=== PATIENT | male | born 1940 | race Two or more races ===

== ENCOUNTER 2019-04-29 05:32 | Inpatient (IN) | payer MEDICARE, OTHER ==
[~2019-04-29] VITALS: Ht 172.7 cm; Wt 59.0 kg
[2019-04-29 08:00] VITALS: BP 122/79
[2019-04-29 08:30] VITALS: BP 122/79
[2019-04-29] MEDS ORDERED: IV NS 0.9% 1,000 ML IV SCH (09:00)
[2019-04-29] MEDS ORDERED: MAG HYDROX/AL HYDROX/SIMETH 30 ML UDC PO PRN (09:00)
[2019-04-29] MEDS ORDERED: Z GUARD REMEDY 2 OZ OINT TP PRN (09:00)
[2019-04-29] MEDS ORDERED: ZOLPIDEM TARTRATE 5 MG TABLET PO PRN (09:00)
--- NOTE | 2019-04-29 09:15 | NUR ---
MS/RN - Admission Received a direct admit form [facility]. Patient is A/O x 4, denies abdominal pain, no c/o n/v, stable on room air, here for SBO under the care of Dr. Castro. Saline lock on the RAC is patent, intact, with no signs of infiltration. Patient came in with Aguila catheter for accurate intake and output monitoring, aguila draining clear yellow urine output. NGT on the right naris in place connected to LIS, noted with brownish/greenish output. Patient oriented to room and use of call light. All belongings accounted. Fall and aspiration precautions initiated. Admission orders noted and carried out. Will continue to monitor closely.
[2019-04-29] MEDS ORDERED: AMYL1CAP54 PO (09:42)
[2019-04-29] MEDS ORDERED: PRAV20TA4 PO (09:42)
[2019-04-29] MEDS ORDERED: LORA0.5T PO (09:42)
[2019-04-29] MEDS ORDERED: ZOLP12.542 PO (09:42)
[2019-04-29] MEDS ORDERED: HYDR-4385 PO (09:42)
[2019-04-29] MEDS: MORPHINE SULFATE INJ 2 MG/ML DISP.SYRIN IV PRN ×2 (10:25→15:30)
--- NOTE | 2019-04-29 10:30 | NUR ---
MS/RN - S/b Dr. Castro Seen and examined by Dr. Castro with orders.
[2019-04-29] MEDS ORDERED: MORPHINE SULFATE INJ 2 MG/ML DISP.SYRIN IVP PRN (13:00)
[2019-04-29 16:00] VITALS: BP 132/84
[2019-04-29] MEDS: ONDANSETRON HCL/PF 4 MG/2 ML VIAL IVP PRN (17:03)
--- NOTE | 2019-04-29 17:36 | NUR ---
MS/RN - End of shift summary Patient with low grade temperature, cooling measures rendered, c/o nausea, Zofran given with relief, still on strict NPO. Per patient, Morphine Sulfate IVP is not helping his pain and requested to change his pain medication. Dr. Castro made aware with order to give Dilaudid 1 mg IVP every 4 hours PRN for severe pain. NGT to right nostril in place, 300 ml of coffee-ground output noted this shift. All needs attended. Fall and aspiration precautions maintained. Will continue with current medical management.
[2019-04-29] MEDS: HYDROMORPHONE 1 MG/1 ML DISP.SYRIN IV PRN ×2 (18:20→21:52)
--- NOTE | 2019-04-29 19:10 | NUR ---
MS/RN PM OPENING NOTE. PATIENT SEEN RESTING IN BED. BEDSIDE REPORT RECIEVED FROM ALBERTO BAXTER. PATIENT HAS NGT TO LIS AND HAD 350 OUT DURING THE DAY. NO S/S OF COMPLICATIONS TO RIGHT NARE. NPO. REVIEWED PAIN MANAEMENT PLAN WITH PATIENT QUESTIONS CONCERNS ADDRESSED. Fall and aspiration precautions maintained. Will continue TO MONITOR. VERBALIZED UNDERSTANDING TO CALL FOR ASSISTANCE NEEDED.
[2019-04-29 20:00] VITALS: BP 138/82
[2019-04-29] MEDS ORDERED: HYDROMORPHONE 1 MG/1 ML DISP.SYRIN IV PRN (22:30)
[2019-04-29] MEDS ORDERED: HYDROMORPHONE 1 MG/1 ML DISP.SYRIN IV ONE (22:30)
[2019-04-29] MEDS: IV NS 0.9% 1,000 ML IV PRN (22:45)
--- NOTE | 2019-04-29 22:45 | NUR ---
dilaudid pain medication change. diomedes kiln feeder called earlier and informed of patient c/o pain 8/10 after being given his dose of dilaudid. order changed to dilaudid 2mg q4hrs prn and one time dose given of dilaudid 1mg. patient now reports that he has better relief of abd pain. arousable to speech. rr of 16. reports pain as 4/10 at this time will cont to monitor.
[2019-04-30] MEDS: ZOLPIDEM TARTRATE 10 MG TABLET PO PRN ×2 (00:56→21:25)
--- NOTE | 2019-04-30 00:56 | NUR ---
patient requested sleeping pill/ ngt turned off for one hour. patient requesting sleeping pill. ambien 10 mg given orally with a sip of water as ordered. ngt lis to be off for the next hour then restarted.
[2019-04-30] MEDS: HYDROMORPHONE INJ 2 MG/ML DISP.SYRIN IV PRN ×5 (02:34→23:30)
[2019-04-30 05:10] VITALS: BP 148/94
--- NOTE | 2019-04-30 06:20 | NUR ---
MS/RN PM CLOSING NOTE. PATIENT SEEN RESTING IN BED. NGT STILL OUTPUTTING BLACK GASTRIC JUICE TO LIS VIA NGT TO RIGHT NARE. PATIENT REPORTING THAT HE BELIEVES THE DILAUDID IS MAKING HIM ANXIOUS AND IS REQUESTING TO HAVE IT CHANGED BACK TO MORPHINE. DR. DEBBIE PHIPPS WILL AWAIGHT CALL BACK. PATIENT REMAINS NPO. Fall and aspiration precautions maintained. Will continue TO MONITOR. VERBALIZED UNDERSTANDING TO CALL FOR ASSISTANCE NEEDED.
[2019-04-30 06:26] LABS: BASOPHILS # (AUTO) 0.1 /CMM (0.0-0.2); BASOPHILS % (AUTO) 0.6 % (0.0-2.0); EOSINOPHILS % (AUTO) 0.2 % (0.0-6.0); HEMATOCRIT 49 % (39-51); HEMOGLOBIN 16.6 g/dL (13.5-17.5); LYMPHOCYTES # (AUTO) 2.3 /CMM (0.8-4.8); LYMPHOCYTES % (AUTO) 12.1 % (20.0-44.0); MEAN CORPUSCULAR HGB CONC 34 g/dl (31.0-36.0); MEAN CORPUSCULAR VOLUME 95 fL (80-96); MONOCYTES # (AUTO) 1.2 /CMM (0.1-1.30); MONOCYTES % (AUTO) 6.2 % (2.0-12.0); NEUTROPHILS # (AUTO) 15.6 /CMM (1.8-8.9); NEUTROPHILS % (AUTO) 80.9 % (43.0-81.0); PLATELET COUNT (AUTO) 284 /CMM (150-450); RED BLOOD CELL COUNT(AUTO) 5.17 MIL/uL (4.5-6.0); WHITE BLOOD COUNT (AUTO) 19.3 K/uL (4.3-11.0)
[2019-04-30 06:48] LABS: CALCIUM, SERUM 8.9 mg/dL (8.5-10.1); CREATININE 0.8 mg/dL (0.6-1.3); PHOSPHORUS 2.2 mg/dL (2.5-4.9); POTASSIUM 4.2 mmol/L (3.5-5.1)
--- NOTE | 2019-04-30 06:50 | NUR ---
PAGE TO AGUS LEWIS MAIN GALLEY SCULLION NOT RETURNED WILL ENDORSE PAIN MANAGEMENT CHANGE OF REORDERING MORPHINE TO ONCOMING NRUSE.
[2019-04-30 08:00] VITALS: BP 146/79
--- NOTE | 2019-04-30 08:00 | NUR ---
PATIENT REQUESTED TO CHANGE PAIN MEDICATION HYDROMORPHONE TO MORPHINE. WILL INFORM DR. DONG
--- NOTE | 2019-04-30 08:30 | NUR ---
PER DR. LETITIA CISNEROS TO CHANGE HYDROMORPHONE IVP TO MORPHINE IVP.
--- NOTE | 2019-04-30 08:40 | NUR ---
PATIENT SEEN BY . PER DR. DONG START ON CLEAR LIQUID AND ADVANCE TOLERATED TO FULL LIQUID. IF PATIENT WILL TOLERATED DIET NG TUBE CAN BE REMOVED. PATIENT WILLING START QLEAR LIQUID FOR LUNCH.
[2019-04-30] MEDS: MORPHINE SULFATE INJ 2 MG/ML DISP.SYRIN IV PRN ×2 (10:38→13:45)
--- NOTE | 2019-04-30 12:30 | NUR ---
PATIENT UNABLE TO EAT, COMPLAIN OF PAIN AND NAUSEA
[2019-04-30] MEDS: HYDROCODONE/APAP 5/325MG 1 EACH TABLET PO PRN (12:48)
[2019-04-30] MEDS ORDERED: K PHOS NEUTRAL 250 MG TABLET PO ONE (13:30)
[2019-04-30] MEDS: ONDANSETRON HCL/PF 4 MG/2 ML VIAL IVP PRN (15:07)
[2019-04-30] MEDS: IV NS 0.9% 1,000 ML IV PRN (15:07)
--- NOTE | 2019-04-30 16:30 | NUR ---
PER PATIENT REQUEST CALLED TO TO CHANGE MORPHINE BACK TO HYDROMORPHONE. PATIENT COMPLAINS THAT MORPHINE DOES NOT WORK WELL.
[2019-04-30 16:31] VITALS: BP 120/71
--- NOTE | 2019-04-30 18:42 | NUR ---
PATIENT RESTING IN BED. PAIN TOLERATED WITH HYDROMORPHONE IV. PATIENT TRYING TO START ON CLEAR LIQUID DIET. ALL NEEDS ATTENDED. IV FLUID RUNNING ORDERED. NGT LTS , OUTPUT 200ML. F/C OUTPUT 1200. SAFETY PRECAUTION IN PLACE , CALL LIGHT WITHIN REACH. WILL ENDORSE TO NEXT SHIFT FOR TAYLOR.
--- NOTE | 2019-04-30 19:31 | NUR ---
MS/RN OPENING NOTES PATIENT IS AWAKE, ALERT X3, ABLE TO VERBALIZE NEEDS, REPORTED PAIN CONSTSNT AND REQUESTING TO GIVE DUE PAIN MEDICATION , BLOOD PRESSURE CHECKED AT 119/78, PULSE RATE ELEVATED AT 130. ASYMPTOMATIC, BUT REPORTED ANXIOUS PATIENT HAVE CHRONIC PAIN, NO NAUSEA, WILL MONITOR, WATCHING BASEBALL GAME AND VERBALIZING NEEDS.WILL GIVE PAIN MEDICATIED DILAUDID2 MG IV. BED LOCKED, CALL LIGHTS WITHIN REACH, WILL MONITOR.
[2019-04-30] MEDS: METOCLOPRAMIDE HCL 10 MG/2 ML VIAL IV SCH (19:39)
[2019-04-30 20:00] VITALS: BP 119/75
--- NOTE | 2019-04-30 20:10 | NUR ---
ms/rn notes patient ngt in placed on right nares with drain colored dark brown.
--- NOTE | 2019-04-30 20:21 | NUR ---
MS/RN NOTES PATIENT WITH NGT FOR BOWEL DISTENTION, AND WITH CROWDER CATETHER DRAINING YELLOW URINE, BEING MONITORED FOR PAIN .
--- NOTE | 2019-04-30 23:50 | NUR ---
ms/rn notes PATIENT REPORTED SEVERE PAIN , PROVIDED FLUIDS, KEEP COMFORTABLE, REPOSITIONED FOR COMFORT, ALERT, ORIENTED X3. REQUIRE ASSISTANCE, PAIN MEDICATION REQUESTED AND INSTRUCTED ON SAFETY MEASURES.
[2019-05-01] MEDS: METOCLOPRAMIDE HCL 10 MG/2 ML VIAL IV SCH ×4 (00:11→19:58)
[2019-05-01] MEDS: HYDROMORPHONE INJ 2 MG/ML DISP.SYRIN IV PRN ×5 (02:38→20:00)
--- NOTE | 2019-05-01 02:38 | NUR ---
MS/RN NOTES PATIENT WOKE UP FROM SLEEP, ALERT, ORIENTED REPORTED SEVERE PAIN, REAPIRATIONS EVEN AND UNLABORED, SKIN WARM TO TOUCH OXYGENATION AT 92% RA, PULSE AT 130, B/P 128/78. WILL MONITOR, KEPT COMFORTABLE. ,
[2019-05-01] MEDS: IV NS 0.9% 1,000 ML IV PRN ×2 (04:31→19:08)
--- NOTE | 2019-05-01 04:35 | NUR ---
MS/RN NOTES PATIENT KEPT COMFORTABLE AND REQUIRE OXYGEN AT 2L TO KEEP OXYGENATION LEVEL ABOVE 92%. WILL MONITOR.
[2019-05-01 06:00] VITALS: BP 126/78
--- NOTE | 2019-05-01 06:50 | NUR ---
MS/RN CLOSING NOTES PATIENT ALERT, ORIENTED, ABLE TO VERBALIZE NEEDS, ON PAIN MANAGEMENT MONITORING LAST PAIN MEDICATION GIVEN AT 0623. PATIENT ON OXYGEN VIA 2L SATURATION OF 96%, ABLE TO SLEEP FEW HOURS, SKIN INTACT AND DRY, ON NGT ON RIGHT NARES WITH INTERMITENT SUCTIONING, CROWDER CATHETER DRAINING YELLOW COLOR URINE. TO MONITOR AND ENDORSE TO AM RN FOR TAYLOR.
--- NOTE | 2019-05-01 07:00 | NUR ---
MS RN OPENING NOTES RECEIVED PATIENT IN BED ALERT AND AWAKE ORIENTED X4. DENIES ANY C/O ABD PAIN, N/V, HEADACHE NOR ANY OTHER DISCOMFORT. NOTED PATIENT WITH HR OF 120 WITH BP OF 119/61 . PER PATIENT, HE'S A BIT ANXIOUS BECAUSE HIS IS STILL OUT OF TOWN IN [place] AND MISSES HER, WANTING HER TO COME HOME. PATIENT DENIES ANY OTHER C/O PAIN NOR DISCOMFORT. ON O2 # 3 L/MIN VIA NC WITHOUT SOB OBSERVED WITH HOB ELEVATED. ON INTERMITTENT SUCTION WITH NGT TO RIGHT NARES LOLA WELL. CROWDER CATHETER INTACT AND PATENT DRAINING URINE VIA BEDSIDE. RAC # 20 INTACT AND PATENT INFUSING NS @ 75ML/HR LOLA WELL. IN NO APPARENT DISTRESS.
[2019-05-01 07:20] LABS: BASOPHILS # (AUTO) 0.1 /CMM (0.0-0.2); BASOPHILS % (AUTO) 0.5 % (0.0-2.0); EOSINOPHILS % (AUTO) 0.4 % (0.0-6.0); HEMATOCRIT 43 % (39-51); HEMOGLOBIN 14.7 g/dL (13.5-17.5); LYMPHOCYTES # (AUTO) 1.2 /CMM (0.8-4.8); LYMPHOCYTES % (AUTO) 6.7 % (20.0-44.0); MEAN CORPUSCULAR HGB CONC 34 g/dl (31.0-36.0); MEAN CORPUSCULAR VOLUME 95 fL (80-96); MONOCYTES # (AUTO) 1.6 /CMM (0.1-1.30); MONOCYTES % (AUTO) 9.4 % (2.0-12.0); NEUTROPHILS # (AUTO) 14.3 /CMM (1.8-8.9); PLATELET COUNT (AUTO) 268 /CMM (150-450); RED BLOOD CELL COUNT(AUTO) 4.58 MIL/uL (4.5-6.0); WHITE BLOOD COUNT (AUTO) 17.3 K/uL (4.3-11.0)
[2019-05-01 07:33] LABS: CALCIUM, SERUM 8.4 mg/dL (8.5-10.1); CREATININE 0.7 mg/dL (0.6-1.3); PHOSPHORUS 1.9 mg/dL (2.5-4.9); POTASSIUM 3.6 mmol/L (3.5-5.1)
--- NOTE | 2019-05-01 07:45 | NUR ---
MS RN NOTES NOTED HR OF 100. PATIENT EATING BREAKFAST. IN NO APPARENT DISTRESS. MD AWARE OF HR OF 120.
[2019-05-01] MEDS: ACETAMINOPHEN 325 MG TABLET PO PRN (07:48)
[2019-05-01 08:00] VITALS: BP 119/69
[2019-05-01] MEDS ORDERED: PRAVASTATIN SODIUM 20 MG TABLET PO SCH (09:00)
[2019-05-01] MEDS: LIPASE/PROTEASE/AMYLASE 1 EACH CAPSULE.DR PO SCH ×3 (09:35→17:19)
[2019-05-01] MEDS: LORAZEPAM 0.5 MG TABLET PO SCH (09:35)
[2019-05-01] MEDS: HYDROCODONE/APAP 5/325MG 1 EACH TABLET PO PRN ×2 (12:02→22:37)
[2019-05-01] MEDS ORDERED: LIPASE PO SCH (13:00)
[2019-05-01] MEDS ORDERED: AMYLASE PO SCH (13:00)
[2019-05-01] MEDS ORDERED: K PHOS NEUTRAL 250 MG TABLET PO ONE (13:00)
[2019-05-01] MEDS ORDERED: [UNRECOGNIZED DRUG - OTHER] PO SCH (13:00)
[2019-05-01] MEDS ORDERED: PROTEASE PO SCH (13:00)
[2019-05-01 16:00] VITALS: BP 129/78
--- NOTE | 2019-05-01 17:02 | NUR ---
MS RN NOTES PATIENT SEEN BY GUS BINGHAM.
--- NOTE | 2019-05-01 19:00 | NUR ---
MS RN CLOSING NOTES ALERT AND AWAKE ORIENTED X4. DENIES ANY C/O ABD PAIN, N/V, HEADACHE NOR ANY OTHER DISCOMFORT. DISCUSSED PAIN MEDICATION WITH PATIENT DUE TO PATIENT WANTING TO RECEIVE NORCO 7.5 MG SAME DOSE HE WAS TAKING AT HOME. DISCUSSED WITH DR. DONG, PER MD, DILAUDID WILL NEED TO BE DECREASED IF NORCO WILL BE INCREASE. RELAYED TO PATIENT, PER PATIENT, HE WANTS TO STAY WITH HIS CURRENT PAIN MEDICATION REGIMEN. DISCUSSED AND EDUCATED PATIENT REGARDING PAIN AND SBO. PATIENT VERBALIZES UNDERSTANDING. NGT TO LOW CONTINOUS SUCTIONED DC'D PER DR. DONG. ATE MEALS WITH FAIR INTAKE LOLA CLEAR LIQUID DIET WELL. ON O2 @ 3 L/MIN VIA NC WITHOUT SOB OBSERVED WITH HOB ELEVATED. CROWDER CATHETER INTACT AND PATENT DRAINING CLEAR YELLOW COLORED URINE VIA BEDSIDE VIA GRAVITY. LEFT HAND # 22 INTACT AND PATENT INFUSING NS @ 75ML/HR LOLA WELL. IN NO APPARENT DISTRESS. BED IN LOWEST POSTION, LOCKED. BED ALARM ON. CALL LIGHT WITHIN REACH.
[2019-05-01 20:00] VITALS: BP 145/78
--- NOTE | 2019-05-01 20:00 | NUR ---
RN NOTES RECEIVED PT. AWAKE ON BED, A/OX3, COMPLAINED OF ABDOMINAL PAIN- DILAUDID 2MG IV GIVEN ORDERED, V/S STABLE, F/C DRAINING CLEAR YELLOW URINE, NOT IN DISTRESS, CALL LIGHT WITHIN REACH, [id number], CONTINUE TO MONITOR
[2019-05-01] MEDS: ATORVASTATIN 10 MG TABLET PO SCH (22:00)
[2019-05-01] MEDS ORDERED: Medication Not On Formulary EA (Zolpidem Tartrate 12.5 MG) PO SCH (22:00)
[2019-05-01] MEDS: ZOLPIDEM TARTRATE 10 MG TABLET PO PRN (22:00)
--- NOTE | 2019-05-01 22:30 | NUR ---
RN NOTES COMPLAINED OF ABDOMINAL PAIN- NORCO 5/325MG PO GIVEN ORDERED, V/S STABLE
[2019-05-02] MEDS: HYDROMORPHONE INJ 2 MG/ML DISP.SYRIN IV PRN ×2 (00:29→05:55)
--- NOTE | 2019-05-02 00:30 | NUR ---
RN NOTES COMPLAINED OF ABDOMINAL PAIN- DILAUDID 2MG IV GIVEN ORDERED, V/S STABLE
[2019-05-02] MEDS: METOCLOPRAMIDE HCL 10 MG/2 ML VIAL IV SCH ×4 (01:04→20:19)
[2019-05-02] MEDS: HYDROCODONE/APAP 5/325MG 1 EACH TABLET PO PRN (04:10)
--- NOTE | 2019-05-02 06:05 | NUR ---
RN NOTES COMPLAINED OF ABDOMINAL PAIN- DILAUDID 2MG IV GIVEN ORDERED, V/S STABLE
[2019-05-02 06:17] LABS: BASOPHILS # (AUTO) 0.2 /CMM (0.0-0.2); BASOPHILS % (AUTO) 1.3 % (0.0-2.0); EOSINOPHILS % (AUTO) 3.7 % (0.0-6.0); HEMATOCRIT 43 % (39-51); HEMOGLOBIN 14.6 g/dL (13.5-17.5); LYMPHOCYTES # (AUTO) 2.5 /CMM (0.8-4.8); LYMPHOCYTES % (AUTO) 16.7 % (20.0-44.0); MEAN CORPUSCULAR HGB CONC 34 g/dl (31.0-36.0); MEAN CORPUSCULAR VOLUME 94 fL (80-96); MONOCYTES # (AUTO) 1.5 /CMM (0.1-1.30); MONOCYTES % (AUTO) 9.9 % (2.0-12.0); NEUTROPHILS # (AUTO) 10.1 /CMM (1.8-8.9); NEUTROPHILS % (AUTO) 68.4 % (43.0-81.0); PLATELET COUNT (AUTO) 282 /CMM (150-450); RED BLOOD CELL COUNT(AUTO) 4.52 MIL/uL (4.5-6.0); WHITE BLOOD COUNT (AUTO) 14.7 K/uL (4.3-11.0)
[2019-05-02 06:46] LABS: CALCIUM, SERUM 8.3 mg/dL (8.5-10.1); CARBON DIOXIDE 26 mmol/L (21-32); CHLORIDE 104 mmol/L (98-107); CREATININE 0.5 mg/dL (0.6-1.3); GLUCOSE 82 mg/dL (74-106); PHOSPHORUS 1.4 mg/dL (2.5-4.9); POTASSIUM 3.2 mmol/L (3.5-5.1); SODIUM SERUM 141 mmol/L (136-145); UREA NITROGEN, BLOOD 7 mg/dL (7-18)
--- NOTE | 2019-05-02 06:58 | NUR ---
RN NOTES SLEEPING BUT AROUSABLE. MORNING CARE RENDERED, NOT IN DISTRESS CALL LIGHT WITHIN REACH, [id number], PT. NEEDS ATTENDED
--- NOTE | 2019-05-02 07:20 | NUR ---
MS RN OPENING NOTES RECEIVED PATIENT IN BED ALERT AND AWAKE ORIENTED X4. DENIES ANY C/O ABD PAIN, N/V, HEADACHE NOR ANY OTHER DISCOMFORT. PATIENT DENIES ANY OTHER C/O PAIN NOR DISCOMFORT. CROWDER CATHETER INTACT AND PATENT DRAINING URINE VIA BEDSIDE. LEFT FA # 22 INFUSING NS @ 75ML/HR LOLA WELL. BED IN LOWEST POSITION, LOCKED. CALL LIGHT WITHIN EACH.
[2019-05-02 08:00] VITALS: BP 136/78
[2019-05-02] MEDS: LORAZEPAM 0.5 MG TABLET PO SCH (09:38)
[2019-05-02] MEDS: LIPASE/PROTEASE/AMYLASE 1 EACH CAPSULE.DR PO SCH ×3 (09:38→17:45)
[2019-05-02] MEDS: IV NS 0.9% 1,000 ML IV PRN ×2 (10:34→23:53)
[2019-05-02] MEDS: POTASSIUM CHLORIDE 20 MEQ TAB.PRT.SR PO SCH ×2 (11:20→12:36)
[2019-05-02] MEDS: HYDROCODONE/APAP 10/325MG 1 EA TABLET PO PRN ×2 (11:21→17:45)
[2019-05-02] MEDS: ACETAMINOPHEN 325 MG TABLET PO PRN (14:35)
[2019-05-02] MEDS ORDERED: K PHOS NEUTRAL 250 MG TABLET PO ONE (15:30)
[2019-05-02 16:00] VITALS: BP 148/92
--- NOTE | 2019-05-02 18:00 | NUR ---
MS RN CLOSING NOTES PATIENT RESTING COMFORTABLY IN BED WATCHING TV. DENIES ANY C/O PAIN NOR DISCOMFORT AT THIS TIME. NO SOB. HOB ELEVATED. LEFT FA # 22 INTACT AND PATENT INFUSING NS @ 75ML/HR. CROWDER CATHETER INTACT AND PATENT DRAINING YELLOW COLORED URINE VIA BEDSIDE VIA GRAVITY. . IN NO APPARENT DISTRESS. CALL LIGHT WITHIN REACH. BED IN LOWEST POSITION, LOCKED.
--- NOTE | 2019-05-02 19:45 | NUR ---
MS RN OPENING NOTES RECEIVED PATIENT FROM MORNING SHIFT, ALERT AND ORIENTED X 4. VERBALLY RESPONSIVE AND ABLE TO FOLLOW DIRECTIONS. BREATHING REGULAR AND UNLABORED ON ROOM AIR. LEFT FOREARM G 22 IV LINE INTACT AND PATENT INFUSING WELL WITH NO BLEEDING OR S/S OF INFECTION/INFILTRATION SEEN. SKIN ASSESSMENT DONE, REMAINED INTACT, DRY AND CLEAN. NO COMPLAINTS OF PAIN/DISCOMFORT REPORTED OF THE TIME. BED LOW AND LOCKED ON SEMI FOWLERS POSITION. WILL CONTINUE TO MONITOR.
[2019-05-02 20:00] VITALS: BP 128/78
[2019-05-02] MEDS: ATORVASTATIN 10 MG TABLET PO SCH (21:22)
[2019-05-02] MEDS: ZOLPIDEM TARTRATE 10 MG TABLET PO PRN (21:22)
[2019-05-03] MEDS: METOCLOPRAMIDE HCL 10 MG/2 ML VIAL IV SCH ×3 (01:06→12:38)
[2019-05-03] MEDS: HYDROCODONE/APAP 10/325MG 1 EA TABLET PO PRN ×3 (01:59→14:17)
--- NOTE | 2019-05-03 02:28 | NUR ---
MS RN NOTES COMPLAINED OF 7/10 ABDOMINAL PAIN, NOTED WITH FACIAL GRIMACING AND GUARDING BEHAVIOR. NORCO 10/325 GIVEN BY MOUTH. NON-PHARMACOLOGICAL INTERVENTIONS DONE. WILL CONTINUE TO MONITOR.
[2019-05-03 05:58] LABS: CALCIUM, SERUM 8.2 mg/dL (8.5-10.1); CREATININE 0.6 mg/dL (0.6-1.3); PHOSPHORUS 1.8 mg/dL (2.5-4.9); POTASSIUM 3.2 mmol/L (3.5-5.1)
[2019-05-03 06:14] LABS: BASOPHILS # (AUTO) 0.1 /CMM (0.0-0.2); BASOPHILS % (AUTO) 0.9 % (0.0-2.0); EOSINOPHILS % (AUTO) 4.8 % (0.0-6.0); HEMATOCRIT 44 % (39-51); HEMOGLOBIN 14.8 g/dL (13.5-17.5); LYMPHOCYTES # (AUTO) 2.9 /CMM (0.8-4.8); LYMPHOCYTES % (AUTO) 22.9 % (20.0-44.0); MEAN CORPUSCULAR HGB CONC 34 g/dl (31.0-36.0); MEAN CORPUSCULAR VOLUME 94 fL (80-96); MONOCYTES # (AUTO) 1.4 /CMM (0.1-1.30); MONOCYTES % (AUTO) 10.9 % (2.0-12.0); NEUTROPHILS # (AUTO) 7.6 /CMM (1.8-8.9); NEUTROPHILS % (AUTO) 60.5 % (43.0-81.0); PLATELET COUNT (AUTO) 304 /CMM (150-450); RED BLOOD CELL COUNT(AUTO) 4.61 MIL/uL (4.5-6.0); WHITE BLOOD COUNT (AUTO) 12.6 K/uL (4.3-11.0)
[2019-05-03] MEDS: ACETAMINOPHEN 325 MG TABLET PO PRN (06:18)
--- NOTE | 2019-05-03 06:23 | NUR ---
MS RN CLOSING NOTES PATIENT IN BED ALERT AND ORIENTED X 4. VERBALLY RESPONSIVE AND ABLE TO FOLLOW DIRECTIONS. BREATHING REGULAR AND UNLABORED ON ROOM AIR. LEFT FOREARM G 22 IV LINE INTACT AND PATENT INFUSING WELL WITH NO BLEEDING OR S/S OF INFECTION/INFILTRATION SEEN. CROWDER CATH INTACT AND PATENT DRAINING CLEAR YELLOW URINE, 1400CC OUTPUT. BED LOW AND LOCKED ON SEMI FOWLERS POSITION. WILL ENDORSE TO MORNING SHIFT FOR TAYLOR.
--- NOTE | 2019-05-03 07:20 | NUR ---
MS RN OPENING NOTE PATIENT IN BED RESTING COMFORTABLY. PATIENT BREATHING IS EVEN AND UNLABORED. PATIENT IN NO ACUTE DISTRESS. NO SOB NOTED. PATIENT CROWDER CATHETER HANGING TO GRAVITY, DRAINING CLEAR AND YELLOW FLUID. HOB IS ELEVATED. SAFETY PRECAUTIONS IN PLACE. PATIENT BED IS LOCKED AND IN LOWEST POSITION. CALL LIGHT WITHIN REACH. WILL CONTINUE TO MONITOR.
[2019-05-03 08:00] VITALS: BP 156/104
[2019-05-03] MEDS: LIPASE/PROTEASE/AMYLASE 1 EACH CAPSULE.DR PO SCH ×2 (08:06→12:38)
[2019-05-03] MEDS: LORAZEPAM 0.5 MG TABLET PO SCH (08:06)
[2019-05-03] MEDS: POTASSIUM CHLORIDE 20 MEQ TAB.PRT.SR PO SCH ×2 (09:47→11:07)
[2019-05-03] MEDS ORDERED: PEG 3350/NA SULF,BICARB,CL/KCL 4,000 ML BOTTLE PO STA (10:48)
[2019-05-03] MEDS ORDERED: BISACODYL SUPP (10 MG) 10 MG/SUPP.RECT SUPP.RECT RC STA (10:48)
[2019-05-03] MEDS ORDERED: K PHOS NEUTRAL 250 MG TABLET PO ONE (12:30)
--- NOTE | 2019-05-03 15:56 | NUR ---
MS DRY CLEANING TEACHER NOTE PATIENT MEDICALLY STABLE TO GO HOME. PATIENT BREATHING IS EVEN AND UNLABORED. PATIENT IN NO ACUTE DISTRESS. NO SOB NOTED. PATIENT NEEDS AND CONCERNS ADDRESSED. DC INSTRUCTIONS PROVIDED. PATIENT VERBALIZED UNDERSTANDING OF DC INSTRUCTIONS. PATIENT SIGNED BELONGINGS LIST AND HAS ALL BELONGINGS WITH HIM. PATIENT REFUSED TO HAVE SKIN ASSESSMENT. PATIENT STATED "MY SKIN IS GOOD, NO NEED TO CHECK MY SKIN". PATIENT CONTINUED TO REFUSE. ID BAND REMOVED. IV REMOVED. PATIENT KEPT CLEAN, DRY, AND COMFORTABLE THROUGHOUT SHIFT. PATIENT GOING BACK HOME WITH CAREGIVER AND NEPHEW. MD AWARE OF DISCHARGE.
== END 2019-05-03 15:50 | disposition home or self-care (01) | DRG 390 ==
LOC: MED 07:22
PROVIDERS: ADMIT Family Medicine; ATTEND Family Medicine
DX: K56.50 Intestinal adhesions [bands], unspecified as to partial versus complete obstruction (principal); Z85.038 Personal history of other malignant neoplasm of large intestine; Z80.8 Family history of malignant neoplasm of other organs or systems; Z90.49 Acquired absence of other specified parts of digestive tract; Z79.891 Long term (current) use of opiate analgesic; G89.29 Other chronic pain; D72.829 Elevated white blood cell count, unspecified; K59.03 Drug induced constipation; T40.2X5A Adverse effect of other opioids, initial encounter; Y92.9 Unspecified place or not applicable
CPT/HCPCS: 36415; 74018; 80048-TC; 80061-TC; 83735-TC; 84100-TC; 85025-TC; 87081-TC; G0378; J1170; J2270; J2405; J2765; J7030